=== PATIENT | male | born 1960 | race African-American/Black ===

== ENCOUNTER → 2018-10-04 | Outpatient (CLI) | payer BC ==
--- NOTE | 2018-10-04 15:26 | RAD ---
AP view of the pelvis and two-view study of both hips. Clinical indications: Bilateral hip pain. No known injury. Right hip: There is moderate joint space narrowing and mild subchondral sclerosis and spurring and mild subchondral cyst formation of the right hip joint consistent with mild to moderate osteoarthritis. Left hip: There is mild joint space narrowing and mild subchondral sclerosis with moderate subchondral cyst formation and mild spurring of the left hip joint consistent with mild to moderate osteoarthritis. Mild calcific gluteal tendinitis is seen at the level of the greater trochanter No acute fracture or dislocation or osteolytic process or diastases is evident. IMPRESSION: Mild to moderate primary degenerative osteoarthritis of both hip joints. Electronically signed by: Talha Humphreys MD (10/04/2018 3:22 PM) [id number]
== END | disposition home or self-care (01) ==
LOC: RAD 14:49
PROVIDERS: ATTEND Family Medicine
DX: M16.0 Bilateral primary osteoarthritis of hip (principal); M76.02 Gluteal tendinitis, left hip; M85.68 Other cyst of bone, other site
CPT/HCPCS: 73521

== ENCOUNTER → 2018-12-13 | Outpatient (CLI) | payer BC ==
--- NOTE | 2018-12-13 14:42 | KCIC ---
MRI of the lumbar spine without contrast 12/13/2018 CLINICAL HISTORY: Low back pain which is chronic and worse when walking. TECHNIQUE: Unenhanced T1-weighted and T2-weighted sagittal and axial and inversion recovery sagittal images of the lumbar spine were obtained. FINDINGS: No previous imaging studies are available for comparison. Very mild S-shaped curvature of the thoracolumbar spine is seen. Degenerative signal changes are seen involving the L3-4, L4-5 and L5-S1 discs. Loss of height of the L5-S1 disc is noted. Degenerative signal changes are seen within the marrow surrounding this disc. The conus medullaris is within normal limits in morphology, position, and signal characteristics. At the L1-2 disc space there is a minimal generalized disc bulge. Degenerative changes are seen involving the facet joints bilaterally. There is mild ligamentum flavum hypertrophy bilaterally. These findings when combined do not result in significant central spinal canal or neural foraminal stenosis. At the L2-3 disc space there is a mild generalized disc bulge. Degenerative changes are seen involving the facet joints bilaterally. There is mild ligamentum flavum hypertrophy bilaterally. There is prominence of the posterior epidural fat. These findings when combined result in mild central spinal canal stenosis. No neural foraminal stenosis is seen. At the L3-4 disc space there is a mild to moderate generalized disc bulge. Degenerative changes are seen involving the facet joints bilaterally. There is moderate ligamentum flavum hypertrophy bilaterally. There are small facet joint effusions. There is prominence of the posterior epidural fat. These findings when combined result in mild to moderate central spinal canal stenosis. No neural foraminal stenosis is seen. At the L4-5 disc space there is a moderate generalized disc bulge. Degenerative changes are seen involving the facet joints bilaterally. There are small facet joint effusions bilaterally. There is prominence of the posterior epidural fat. These findings when combined result in moderate to severe central spinal canal stenosis. Mild to moderate bilateral neural foraminal stenosis is seen. At the L5-S1 disc space there is a moderate generalized disc bulge. Degenerative changes are seen involving the facet joints bilaterally. There is mild ligamentum flavum hypertrophy bilaterally. There is prominence of the posterior epidural fat. These findings when combined result in mild to moderate central spinal canal stenosis. Moderate bilateral neural foraminal stenosis is seen. IMPRESSION: The changes of degenerative disc disease are seen throughout the lumbar spine. These findings result in mild central spinal canal stenosis at L2-3, mild to moderate central spinal canal stenosis at L3-4, moderate to severe central spinal canal stenosis at L4-5 and mild to moderate central spinal canal stenosis at L5-S1. Mild to moderate bilateral neural foraminal stenosis is seen at L4-5. Moderate bilateral neural foraminal stenosis is seen at L5-S1. Electronically signed by: Amilcar Ayala MD (12/13/2018 2:38 PM) [facility]
== END | disposition home or self-care (01) ==
LOC: KCIC MRI 09:08
PROVIDERS: ATTEND Orthopaedic Surgery
DX: M51.16 Intervertebral disc disorders with radiculopathy, lumbar region (principal); M48.061 Spinal stenosis, lumbar region without neurogenic claudication; M48.07 Spinal stenosis, lumbosacral region
CPT/HCPCS: 72148

== ENCOUNTER → 2019-01-31 | Outpatient (CLI) | payer BC ==
[~2019-01-31] MED LIST: ASPI-630 PO; ATOR40TA59 PO; INSU100I13 SQ; IOHEXOL 180 MG/ML 10 ML VIAL. ONE; LISI-334 PO; SITA100T PO; methylPREDNISolone ACETATE 40 MG/ML VIAL. ONE; methylPREDNISolone ACETATE 80 MG/ML VIAL. ONE
--- NOTE | 2019-01-31 12:39 | PAIN ---
DATE OF SERVICE: 01/31/2019 INITIAL CONSULTATION FOR PAIN CLINIC CHIEF COMPLAINT: Low back, bilateral lower extremity pain. HISTORY OF PRESENT ILLNESS: This is a 58-year-old male who presents with history of pain for 2-3 months, increasing multiple episodes of low back pain over the years but worse over the 2 past 2-3 months but the pain is becoming more constant in the low back and bilateral posterior lateral thigh, lateral anterior thighs, medial thighs, posterior calves as well bilaterally and lateral calves. The patient reports it is shooting pain, becoming more constant with tingling and numbness across the low back and specifically into the hips. The patient reports he thought this was his hips. He was seen by orthopedist with the MRI scans done of the bilateral hips showing no acute fracture or dislocation with some only akoc-lb-bzwdxqme osteoporosis without other significant findings. The patient subsequently had an MRI scan of the lumbar spine showing degenerative disk disease throughout the lumbar spine with mild central spinal canal stenosis at L2-L3, moderate central stenosis L3-L4, [id number] central spinal canal stenosis at L4-L5, [id number]-ya-myezlgdd central spinal stenosis at L5-S1, [id number] bilateral neural foraminal stenosis at L4-L5 and moderate bilateral neural foraminal stenosis seen at L5-S1. The patient reports it is worse with standing, walking, changing positions, especially sitting, riding, much worse at work. He works as a [employer] at [employer], is on the [employer] most of the day, is bouncing, is firm and does exacerbate the pain significantly. The patient rates his disability rate from 0-10, 10 being the worst, is a 10 in all categories, family and home responsibilities, recreation, social activity, sexual behavior, occupation, self-care and life support activities. The patient has tried gabapentin 300 mg, he is taking that currently, has not been decreasing his pain. He has not had any formal physical therapy recently. No chiropractic treatment or other modalities. He is doing some stretching on his own, just putting some heat on his back and it is about all the heat does decrease the pain mildly. The patient reports it awakens him from sleep at night throughout the night multiple times, does not affect her bowel or bladder control, but does affect his ability to walk, especially with sitting and changing positions at work. PAST MEDICAL HISTORY: Significant for diabetes, now insulin-dependent; hypertension; hyperlipidemia and arthritis. PAST SURGICAL HISTORY: Previous surgeries include left inguinal hernia repair and a left ganglion cystectomy. CURRENT MEDICATIONS: Include Januvia, lisinopril, atorvastatin, daily baby aspirin and Lantus insulin. ALLERGIES: The patient has no known drug allergies. FAMILY HISTORY: Significant for no major medical problems or conditions that he is aware of. SOCIAL HISTORY: The patient does not smoke; does not drink alcohol and does not use any illegal, illicit or recreational drugs. 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 REVIEW OF SYSTEMS: The patient's review of systems is positive for those items mentioned in history of present illness. All systems reviewed and otherwise negative. It is complete, full and well documented on the patient's chart. PHYSICAL EXAMINATION: VITAL SIGNS: Today, the patient's blood pressure is 143/106, pulse 79, respirations 16 and temperature is 98.9 degrees Fahrenheit. Height 6 feet 2 inches and weight is 267 pounds. GENERAL: The patient is awake, alert, oriented, appropriate and very pleasant demeanor. HEENT: Head is normocephalic and atraumatic. Extraocular movements are intact and symmetrical. Oral cavity: Mucous membranes moist and pink. Dentition is intact. NECK: Shows anterior throat supple without palpable lymphadenopathy noted. Swallow reflex symmetrical. CHEST: Shows normal on inspection. Breath sounds clear to auscultation bilaterally. HEART: Shows S1 and S2 clear. No murmurs auscultated. ABDOMEN: Soft, nontender and nondistended. No palpable organomegaly is noted. No rebound or guarding demonstrated. BACK: Shows spine grossly in the midline, normal-appearing cervical lordotic curvature, thoracic kyphotic curvature and lumbar lordotic curvature. Lumbar paraspinous muscle shows symmetrical on inspection. On palpation shows some moderate tenderness diffusely but without radiation. The patient has good rotational motion of the lumbar spine, both laterally greater than 10 degrees right and left as well as extension greater than 10 degrees, forward flexion 45 degrees without significant pain reported. No tenderness over the spinous processes, sacrum or sacroiliac regions. EXTREMITIES: The patient's lower extremities show deep tendon reflexes at 2+ patellar, 1+ tendo-calcaneus tendons. Motor exam is strong with 5/5 dorsiflexion, extension, quadriceps and hamstring flexion symmetrical. Peripheral pulses are 1+ posterior tibial and dorsalis pedis pulses. No peripheral edema is noted. Lower extremities are warm and dry to touch, equal in color and appearance. Straight leg raise noted to be negative for reproduction of radicular symptoms bilaterally. Gaenslen's and Randy's maneuvers are negative bilaterally as well. The patient is able to stand, stand on his toes without significant difficulty or loss of balance, walks with a normal-appearing gait for short distance in the office today, not using any assistive devices such as canes or walkers to ambulate. SKIN: The patient's skin shows warm and dry, good turgor. No edema. No sores, rashes or bruising. IMPRESSION: 1. This is a 58-year-old male with 2-3 months history of increasing pain, becoming more constant, low back, bilateral lower extremities in a radicular fashion. 2. MRI scan of the lumbar spine as noted. 3. Diabetes. 4. Hypertension. 5. Arthritis. PLAN: Options were discussed with the patient including conservative medical management, physical therapy, interventional technique. He would like to pursue interventional techniques. We discussed a lumbar epidural steroid injection using description as well as anatomical models to describe the procedure. Risks were then discussed including, but not limited to bleeding, infection, possibility of epidural hematoma and subsequent neurological compromise, dural puncture, headaches, spinal cord and/or nerve damage, side effects of steroid medication and poor results regarding pain control. The patient understands and wished to proceed. The patient will return to the clinic in approximately 2 weeks for followup, was counseled as to return appointment, activity level and side effects to be aware of. DIAGNOSES: Lumbar radiculopathy with lumbar degenerative disk disease and lumbar spinal stenosis. PROCEDURE: Lumbar epidural steroid injection, translaminar approach, L4-L5 level using C-arm fluoroscopic guidance under sterile prep and drape using local anesthetic. MEDICATION INJECTED: A total of 120 mg Depo-Medrol plus 10 mL of preservative-free normal saline and 2 mL of Isovue for contrast. CONDITION AT DISCHARGE: Stable. The patient tolerated the procedure well and had no complications. DALIA CHILDRESS MD DR: KATHY/janelle JOB#: [id number] / [id number] BRENDA Esposito MD
== END | disposition home or self-care (01) ==
LOC: PNCL 10:42
PROVIDERS: ATTEND Anesthesiology
DX: M51.16 Intervertebral disc disorders with radiculopathy, lumbar region (principal); M48.061 Spinal stenosis, lumbar region without neurogenic claudication; I10 Essential (primary) hypertension; E11.9 Type 2 diabetes mellitus without complications; M19.90 Unspecified osteoarthritis, unspecified site; E78.5 Hyperlipidemia, unspecified; Z98.890 Other specified postprocedural states; Z79.82 Long term (current) use of aspirin; Z79.84 Long term (current) use of oral hypoglycemic drugs; Z79.899 Other long term (current) drug therapy
CPT/HCPCS: 62323; J1030; J1040; Q9965